=== PATIENT | female | born 1970 | race African-American/Black ===

== ENCOUNTER 2020-02-04 06:30 | Inpatient (IN) ==
[2020-02-04] MEDS ORDERED: CITRIC ACID/SODIUM CITRATE 30 ML UDCUP PO ONE (06:43)
[2020-02-04] MEDS ORDERED: FAMOTIDINE 20 MG/2 ML VIAL IV ONE (06:43)
[2020-02-04] MEDS ORDERED: ceFAZolin 2,000 MG in PREMIX 1 EACH IV ONE (06:43)
[2020-02-04] MEDS ORDERED: OXYTOCIN/LR 20 UNIT/1,000 ML BAG IV ONE ×3 (06:45→10:14)
[2020-02-04] MEDS ORDERED: LACTATED RINGERS 1,000 ML IV SCH ×2 (07:00→10:30)
[2020-02-04 07:06] LABS: Basophils % 0.1 % (0.0-0.8); Hemoglobin 11.4 GM/DL (12.0-16.0); Immature Granulocytes % 1.7 %; Immature Granulocytes Absolute 0.22 #; Lymphocytes # 1.2 10*3/uL (1.4-4.0); Lymphocytes % 9.4 % (21.3-54.2); Mean Corpuscular HGB Conc 32.6 GM/DL (32-36); Mean Corpuscular Volume 85.8 FL (87-102); Mean Platelet Volume 9.5 FL (9.6-12.0); Monocytes % 7.1 % (1.7-12.7); Neutrophils % 81.7 % (38.7-73.9); Platelet Count 378 T/CUMM (130-400); Red Blood Count 4.08 MC/CUMM (3.8-5.5); Red Cell Distribution Width 13.7 % (9.3-17.3)
[2020-02-04 07:31] LABS: Alanine Aminotransferase 22 U/L (13-56); Alkaline Phosphatase 83 U/L (45-117); Aspartate Amino Transferase 19 U/L (0-37); Bilirubin,Total < 0.39 MG/DL (0.2-1.0); Blood Urea Nitrogen 8 MG/DL (7-18); Calcium 9.3 MG/DL (8.5-10.1); Estimated Glom Filtration Rate 113 ML/MIN; Glucose 114 MG/DL (74-106); Osmolality,Calculated 271.8 MOS/KG (273-304); Total Protein 7.8 G/DL (6.4-8.3)
[2020-02-04] MEDS ORDERED: miSOPROStoL 200 MCG TABLET ONE ×2 (08:22→12:01)
[2020-02-04] MEDS ORDERED: TRANEXAMIC ACID 1,000 MG/10 ML VIAL ONE ×2 (08:23→10:26)
[2020-02-04] MEDS ORDERED: METHYLERGONOVINE 0.2 MG/1 ML AMP ONE (08:23)
[2020-02-04] MEDS ORDERED: CARBOPROST TROMETHAMINE 250 MCG/ML AMP IM ONE (08:23)
[2020-02-04] MEDS ORDERED: MORPHINE 10 MG/10 ML VIAL ONE (08:56)
[2020-02-04] MEDS ORDERED: ONDANSETRON 4 MG/2 ML VIAL ONE (08:56)
[2020-02-04] MEDS ORDERED: fentaNYL 100 MCG/2 ML VIAL ONE (08:56)
[2020-02-04] MEDS ORDERED: PHENYLEPHRINE 1 MG/10 ML SYRINGE IV ONE (08:56)
[2020-02-04] MEDS ORDERED: BUPIVACAINE SPINAL 0.75% 2 ML AMP SPINAL ONE (08:56)
[2020-02-04] MEDS ORDERED: KETOROLAC 60 MG/2 ML VIAL IM ONE (08:57)
[2020-02-04] MEDS ORDERED: DEXAMETHASONE 4 MG/1 ML VIAL ONE (08:57)
[2020-02-04 09:54] LABS: Cord Venous Blood HCO3 22.3 MMOL/L; Cord Venous Blood PCO2 38.3 MMHG
[2020-02-04] MEDS ORDERED: SIMETHICONE CHEW 80 MG TABLET PO PRN (10:14)
[2020-02-04] MEDS ORDERED: ACETAMINOPHEN 325 MG TABLET PO PRN (10:14)
[2020-02-04] MEDS ORDERED: RHO(D) IMMUNE GLOBULIN 300 MCG SYRINGE IM ONE (10:14)
[2020-02-04] MEDS ORDERED: ONDANSETRON 4 MG/2 ML VIAL IV PRN (10:14)
[2020-02-04] MEDS ORDERED: oxyCODONE/ACETAMINOPHEN 5-325 MG TABLET PO PRN (10:17)
[2020-02-04 10:23] LABS: Apearance,Urine CLEAR (Clear); Bilirubin,Urine Negative (Negative); Blood, Urine Negative (Negative); Glucose,Urine (UA) Negative (Negative); Ketones,Urine 20 mg/dL (Negative); Nitrite,Urine Negative (Negative); Protein,Urine Negative; RBC,Urine <1 /HPF (0-4); Squamous Epithelial Cell,Urine Occasional /HPF (0-10); Urine Color Yellow (Yellow); Urine Specific Gravity 1.012 (1.001-1.035); Urine Urobilinogen < 2.0 EU/DL (0.2-1.0); WBC,Urine <1 /HPF (0-6)
[2020-02-04] MEDS ORDERED: ceFAZolin 1,000 MG in SYRINGE 1 EACH IV SCH (10:30)
[2020-02-04] MEDS ORDERED: HYDROmorphone 2 MG/1 ML VIAL IV PRN (10:35)
[2020-02-04] MEDS ORDERED: hydrOXYzine HCL 25 MG/1 ML VIAL IM PRN (10:35)
[2020-02-04] MEDS ORDERED: diphenhydrAMINE 50 MG/1 ML VIAL IV PRN (10:35)
[2020-02-04 11:46] LABS: Hematocrit 32.4 VOL% (35.7-47.0); Hemoglobin 10.5 GM/DL (12.0-16.0)
[2020-02-04] MEDS: miSOPROStoL 200 MCG TABLET PO SCH ×3 (12:06→21:24)
[2020-02-04 16:50] LABS: Basophils % 0.1 % (0.0-0.8); Hematocrit 29.7 VOL% (35.7-47.0); Hemoglobin 9.7 GM/DL (12.0-16.0); Immature Granulocytes Absolute 0.15 #; Lymphocytes % 6.6 % (21.3-54.2); Mean Corpuscular HGB Conc 32.7 GM/DL (32-36); Mean Corpuscular Volume 87.6 FL (87-102); Mean Platelet Volume 9.4 FL (9.6-12.0); Neutrophils % 81.3 % (38.7-73.9); Platelet Count 290 T/CUMM (130-400); Red Blood Count 3.39 MC/CUMM (3.8-5.5); Red Cell Distribution Width 13.8 % (9.3-17.3); White Blood Count 15.5 T/CUMM (4-12)
[2020-02-04] MEDS: KETOROLAC 30 MG/1 ML VIAL IV SCH ×2 (17:20→23:19)
[2020-02-04] MEDS: ceFAZolin 1,000 MG in SYRINGE 1 EACH IV SCH (17:21)
[2020-02-05] MEDS: ceFAZolin 1,000 MG in SYRINGE 1 EACH IV SCH (00:50)
[2020-02-05] MEDS: miSOPROStoL 200 MCG TABLET PO SCH ×3 (00:50→08:47)
[2020-02-05] MEDS: DOCUSATE SODIUM 100 MG CAPSULE PO SCH ×3 (01:00→20:13)
[2020-02-05] MEDS: KETOROLAC 30 MG/1 ML VIAL IV SCH ×2 (04:00→12:35)
[2020-02-05 07:00] LABS: Basophils % 0.2 % (0.0-0.8); Eosinophils % 0.3 % (0.00-10.9); Hematocrit 25.9 VOL% (35.7-47.0); Hemoglobin 8.5 GM/DL (12.0-16.0); Immature Granulocytes Absolute 0.13 #; Lymphocytes # 1.6 10*3/uL (1.4-4.0); Lymphocytes % 12.5 % (21.3-54.2); Mean Corpuscular HGB Conc 32.8 GM/DL (32-36); Mean Corpuscular Volume 86.6 FL (87-102); Mean Platelet Volume 9.6 FL (9.6-12.0); Monocytes % 11.2 % (1.7-12.7); Neutrophils % 74.8 % (38.7-73.9); Platelet Count 278 T/CUMM (130-400); Red Blood Count 2.99 MC/CUMM (3.8-5.5); Red Cell Distribution Width 13.5 % (9.3-17.3); White Blood Count 12.7 T/CUMM (4-12)
[2020-02-05] MEDS: LISINOPRIL/HCTZ 20-25 MG TABLET PO SCH (08:45)
[2020-02-05] MEDS: MULTIVITAMIN (PRENATAL) TABLET PO SCH (08:47)
[2020-02-05] MEDS: MAGNESIUM HYDROXIDE SUSP 30 ML UDCUP PO PRN ×2 (08:48→20:13)
[2020-02-05] MEDS: IBUPROFEN 800 MG TABLET PO PRN ×2 (12:35→23:17)
[2020-02-06] MEDS: LISINOPRIL/HCTZ 20-25 MG TABLET PO SCH (08:17)
[2020-02-06] MEDS: DOCUSATE SODIUM 100 MG CAPSULE PO SCH (08:21)
[2020-02-06] MEDS: MULTIVITAMIN (PRENATAL) TABLET PO SCH (08:21)
[2020-02-06] MEDS: MAGNESIUM HYDROXIDE SUSP 30 ML UDCUP PO PRN (08:21)
[2020-02-06 08:39] VITALS: BP 148/88
== END 2020-02-06 12:20 | disposition home or self-care (01) | DRG 785 ==
LOC: N.LD 06:30 → N.OB 16:14
PROVIDERS: ADMIT Obstetrics & Gynecology; ATTEND Obstetrics & Gynecology